=== PATIENT | male | born 1960 | race African-American/Black ===

== ENCOUNTER → 2017-01-16 | Outpatient (CLI) | payer OTHER ==
[~2017-01-16] MED LIST: BACL10TA PO; BARIUM SULFATE 135 ML (E-Z HD) PO ONE; GABA300C16 PO; MUSCLE RELAXANT; SIMETH/SOD BICARB/CIT AC PKT (E-Z- GAS II) PO ONE
--- NOTE | 2017-01-16 13:48 | RADRPT ---
PROCEDURE: Upper GI series. CLINICAL INDICATION: Abdomen pain. TECHNIQUE: Barium and gas granules were administered orally and several spot and overhead radiogra phs were obtained. COMPARISON: No prior study is available for comparison. FINDINGS: There is no aspiration. Esophageal motility is normal. There is no esophageal mass, ulcer, or stricture. There is no gastroesophageal reflux. 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 The stomach and duod enum are otherwise normal with no ulceration, mass, or mucosal abnormality. IMPRESSION: 1. 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 2. Otherwise normal upper GI series. RPTAT: QQ .Eduard Tyler MD, MD Date Time Electronically viewed and signed by .Eduard Tyler MD, on 01/16/2017 13:48 .R/
--- NOTE | 2017-01-16 13:50 | RADRPT ---
PROCEDURE: Small bowel follow-through. CLINICAL INDICATION: Abdomen pain. TECHNIQUE: Barium was administered orally and several spot and overhead radiographs of the abdomen were obtained. COMPARISON: None. FINDINGS: The preliminary radiograph is normal. There is no small bowel displacement or mass. The small bowel folds are normal. There is no evidence of obstruction. Transit time is normal with contrast in the colon at 30 minutes. Spot views of the terminal ileum are unremarkable with no mass or other abnormality. The appendix o pacifies normally. IMPRESSION: 1. Normal small bowel follow-through. RPTAT: QQ .Eduard Tyler MD, MD Date Time Electronically viewed and signed by .Eduard Tyler MD, on 01/16/2017 13:50 .R/
== END | disposition home or self-care (01) ==
LOC: RAD 09:41
PROVIDERS: ATTEND Internal Medicine
DX: K57.10 Diverticulosis of small intestine without perforation or abscess without bleeding (principal); R10.9 Unspecified abdominal pain
CPT/HCPCS: 74240; 74250; Z7610

== ENCOUNTER → 2017-09-02 | Outpatient (CLI) | payer MEDICARE, OTHER ==
[~2017-09-02] MED LIST changes: -BARIUM SULFATE 135 ML (E-Z HD) PO ONE; -SIMETH/SOD BICARB/CIT AC PKT (E-Z- GAS II) PO ONE
--- NOTE | 2017-09-02 15:26 | CONS ---
Date/Time of Note Date/Time of Note DATE: 09/02/17 TIME: 14:47 Assessment/Plan Assessment/Plan Additional Assessment/Plan The patient has minimal osteoarthritis of the left knee. There is no specific findings on physical exam or xrays. If he does have rheumatoid arthritis the erosions may not be appreciated on xray. We will start with conservative therapy. This includes physical therapy as well as meloxicam 7.5 mg daily. If this fails to help we will likely get an MRI of the knee to further evaluate. His symptoms may also stem from his abnormal gait secondary to his back pain. Follow-up in 8-10 weeks after trialing physical therapy and meloxicam. Consultation Date/Type/Reason Admit Date/Time Reason for Consultation Left knee pain Hx of Present Illness Is a 57-year-old male with a chief complaint of left knee pain. The pain began approximately many years ago ago. The patients pain is diffuse over the left knee. Pain is not radiating to the lower leg. The pain is rated as a 8/10. Patient denies complaints of numbness or tingling. The pain is exacerbated by climbing stairs, sitting for long periods of time, and ambulation. Duration: 20 years Injury: No specific injury walking tolerance: 1-1/2 Limp: Yes Support: Cane at times Swelling: Occasional Crepitation: No Instability: No Stairs: Uses banister Physical Therapy: PT in the past for back issues Injections: No NSAIDs: None Prior surgery: None Back pain: Yes Hip pain: None Risk of AVN : No Patient denies fever, chills, shortness of breath, chest pain, nausea/vomiting, constipation, diarrhea, numbness, and tingling. Past Medical History The patient has a past medical history of frequent urination, depression, weakness, possible rheumatoid arthritis, poor circulation, eczema. Family History Significant Family History: no pertinent family hx Social History Alcohol Use: rarely Smoking Status: Current every day smoker (1 ppd) Drug Use: none Exam/Review of Systems Vital Signs Vitals Weight: 185 pounds Height: 6' 1 " BMI: 24.4 Temperature: 97.9 Heart Rate: 75 Blood Pressure: 133/90 Respiratory Rate: 14 Exam General: Alert, oriented x3. No Acute Distress. Heart: Regular rate and rhythm. Lungs: No respiratory distress. No accessory muscle use. Musculoskeletal: Left Knee This is a well developed male who is alert, oriented times three and in no apparent distress. Skin is intact over the left knee as well as the lower extremity with no abrasions, lacerations, or ulcerations. Observation of the patient's gait reveals an antalgic gait with no thrust. Frontal plane alignment is neutral to slight varus. There is no pain on palpation of the joint lines. The patient has no grinding anteriorly with ROM. Range of motion: 0 extension to approximately 120 degrees of flexion. Collateral ligament testing reveals no instability with varus or valgus stress at 0 and 30 degrees of flexion. Negative Usama's and negative posterior drawer. Neurovascularly intact with 5/5 EHL/tibialis anterior /gastroc. Sensation intact to light touch in a sural, saphenous, deep peroneal, superficial peroneal, medial and lateral plantar nerve distribution. Palpable, symmetric dorsalis pedis and posterior tibial pulses in both lower extremities. Hip examination normal. Imaging Free Text/Dictation The patient received a standard set of films today that were personally reviewed. Imaging included a standing bilateral knee AP, PA flexion, merchant views and a dedicated lateral of the affected knee: There is slight varus alignment of the knee. There is minimal loss of joint space medial compartment(s). There is no osteophyte formation. There is no subchondral sclerosis. There are no subchondral cysts. Degenerative changes minor. MIKE WAITE MD Sep 02, 2017 14:58
--- NOTE | 2017-09-04 09:46 | RADRPT ---
PROCEDURE: XR Knees. CLINICAL INDICATION: Bilateral knee pain. TECHNIQUE: Total of eight views. Weightbearing frontal, oblique, and lateral views of the both kn ees. Patellar views of both knees. COMPARISON: No prior study is available for comparison. FINDINGS: There is no fracture or dislocation. The soft tissues are normal. There are degenerative changes with small osteophytes arising from the joint margins. There are spur s arising from both patellae superiorly. There is no lytic or blastic lesion. There is no radiopaque foreign body. IMPRESSION: 1. Degenerative changes. 2. Otherwise unremarkable images of both knees. RPTAT: QQ .Eduard Tyler MD, MD Date Time Electronically viewed and signed by .Eduard Tyler MD, MD on 09/04/2017 09:46 .R/
== END | disposition home or self-care (01) ==
LOC: HKI 13:33
PROVIDERS: ATTEND Orthopaedic Surgery Adult Reconstructive Orthopaedic Surgery
DX: F32.9 Major depressive disorder, single episode, unspecified (principal); L30.9 Dermatitis, unspecified; R53.1 Weakness; R35.0 Frequency of micturition; Z72.0 Tobacco use
CPT/HCPCS: 73564; G0463

== ENCOUNTER → 2017-11-25 | Outpatient (CLI) | END | disposition home or self-care (01) ==

== ENCOUNTER → 2018-02-11 | Outpatient (CLI) | END | disposition home or self-care (01) ==